=== PATIENT | female | born 1970 | race Caucasian/White ===

== ENCOUNTER 2022-10-23 15:28 | Emergency (ER) | payer MEDICAID ==
[~2022-10-23] VITALS: Ht 157.5 cm; Wt 111.4 kg
[2022-10-23 15:51] VITALS: BP 112/61; PULSE 85; RESP 18; TEMP 97.5; O2SAT 97
[2022-10-23 17:06] LABS: BASOPHILS % (AUTO) 0.7 % (0-1); EOSINOPHILS # (AUTO) 0.5 X10'3 (0-0.9); EOSINOPHILS % (AUTO) 6.8 % (0-6); HEMATOCRIT 36.2 % (35.0-45.0); HEMOGLOBIN 12.1 g/dl (12.0-16.0); LYMPHOCYTES # (AUTO) 2.3 X10'3 (1.1-4.8); LYMPHOCYTES % (AUTO) 32.9 % (21-51); MEAN CORPUSCULAR HEMOGLOBIN 31.5 PG (27.0-31.0); MEAN CORPUSCULAR HGB CONC 33.5 g/dL (33.0-36.5); MEAN CORPUSCULAR VOLUME 93.9 FL (78-98); MEAN PLATELET VOLUME 8.8 FL (7.4-10.4); MONOCYTES # (AUTO) 0.8 X10'3 (0-0.9); NEUTROPHILS # (AUTO) 3.3 X10'3 (1.8-7.7); NEUTROPHILS % (AUTO) 48.6 % (42-75); PLATELET COUNT 237 X10'3 (140-440); RED BLOOD COUNT 3.86 X10'6 (4.20-5.60); RED CELL DISTRIBUTION WIDTH 14.4 % (11.5-14.5); WHITE BLOOD COUNT 6.9 X10'3 (4.5-11.0)
[2022-10-23] MEDS ORDERED: ALBE200T10 PO (17:15)
[2022-10-23 17:18] LABS: ALANINE AMINOTRANSFERASE 14 U/L (12-78); ALBUMIN/GLOBULIN RATIO 0.8 (1.1-1.5); ALKALINE PHOSPHATASE 74 IU/L (46-116); ANION GAP 3 (8-16); ASPARTATE AMINO TRANSFERASE 14 U/L (10-37); BILIRUBIN,TOTAL 0.2 MG/DL (0.1-1.0); BLOOD UREA NITROGEN 9 MG/DL (7-18); BUN/CREATININE RATIO 8.5 (10.0-20.0); CALCIUM 8.8 MG/DL (8.5-10.1); CHLORIDE 102 MMOL/L (99-107); CREATININE 1.06 MG/DL (0.40-0.90); GLUCOSE 98 MG/DL (70-104); POTASSIUM 3.9 MMOL/L (3.5-5.1); SODIUM 136 MMOL/L (135-145); TOTAL CARBON DIOXIDE 31.4 MMOL/L (24-32); TOTAL PROTEIN 6.6 G/DL (6.4-8.2); eCRCL 50 ML/MIN; eGFR 55 ML/MIN
== END 2022-10-23 17:37 | disposition home or self-care (01) ==
LOC: ER 15:30
DX: B88.8 Other specified infestations (principal); Z88.6 Allergy status to analgesic agent; Z79.899 Other long term (current) drug therapy; Z88.5 Allergy status to narcotic agent
CPT/HCPCS: 36415; 80053; 85025; 99283

== ENCOUNTER 2022-11-12 20:59 | Emergency (ER) | payer MEDICAID ==
[~2022-11-12] VITALS: Ht 157.5 cm; Wt 106.8 kg
[~2022-11-12 20:59] MED LIST: ALBE200T10 PO
[2022-11-12 21:18] VITALS: BP 131/103; PULSE 104; RESP 16; TEMP 97.9; O2SAT 98
[2022-11-12 23:52] LABS: URINE AMPHETAMINE SCREEN POSITIVE (Neg); URINE BARBITUATE SCREEN NEGATIVE (Neg); URINE BENZODIAZEPINES SCREEN NEGATIVE (Neg); URINE CANNABINOID SCREEN NEGATIVE (Neg); URINE COCAINE SCREEN NEGATIVE (Neg); URINE METHADONE SCREEN NEGATIVE (Neg); URINE OPIATE SCREEN POSITIVE (Neg); URINE PHENCYCLIDINE SCREEN NEGATIVE (Neg)
[2022-11-13] MEDS ORDERED: HYDR28CR14 TOP (00:05)
[2022-11-13] MEDS ORDERED: PRED20TA PO (00:05)
== END 2022-11-13 00:19 | disposition home or self-care (01) ==
LOC: ER 21:00
DX: R21 Rash and other nonspecific skin eruption (principal); R11.0 Nausea; R51.9 Headache, unspecified; R19.7 Diarrhea, unspecified; R53.81 Other malaise; R53.1 Weakness; Z88.8 Allergy status to other drugs, medicaments and biological substances; Z88.5 Allergy status to narcotic agent; Z79.899 Other long term (current) drug therapy
CPT/HCPCS: 36415; 80305; 99283